=== PATIENT | male | born 1980 | race Native Hawaiian/Other Pacific Islander ===

== ENCOUNTER 2017-09-19 19:58 | Emergency (ER) | payer MEDICAID, OTHER ==
[2017-09-19 19:58] VITALS: BMI 25.4
[2017-09-19 20:24] VITALS: TEMP 98.5
[2017-09-19] MEDS ORDERED: LIDOCAINE IV STA ×2 (20:42→20:53)
[2017-09-19] MEDS ORDERED: SODIUM CHLORIDE 0.9% IV STA ×2 (20:42→20:53)
[2017-09-19] MEDS ORDERED: Sodium Chloride 0.9% 1,000 ML IV STA (20:42)
--- NOTE | 2017-09-19 20:42 | C.PDOC ---
History Of Present Illness 37 year old male presents to the ER with a complaint of suprapubic pain that occasionally radiates to the back that began yesterday. Patient was seen and treated in the ER last year for similar symptoms with no acute findings. He reports taking 2 tablets of advil [employer] which he states made him nauseous, but otherwise denies urinary frequency, vomiting, Hx of UTI, or Hx of kidney stones. Time Seen by Provider: 09/19/17 20:28 Chief Complaint (Nursing): Abdominal Pain History Per: Patient History/Exam Limitations: no limitations Onset/Duration Of Symptoms: Days Current Symptoms Are (Timing): Still Present Quality Of Discomfort: Unable To Describe Associated Symptoms: Nausea, Back Pain, Other (Suprapubic pain). denies: Fever , Chills, Vomiting, Urinary Symptoms Alleviating Factors: None Recent travel outside of the [place]: No Past Medical History Reviewed: Historical Data, Nursing Documentation, Vital Signs Vital Signs: Last Vital Signs Temp 98.5 F 09/19/17 20:18 Pulse 101 H 09/19/17 20:18 Resp 16 09/19/17 20:18 BP 148/92 H 09/19/17 20:18 Pulse Ox 98 09/19/17 20:52 Family History: States: Unknown Family Hx - Social History Hx Tobacco Use: No Hx Alcohol Use: No Hx Substance Use: No - Immunization History Hx Tetanus Toxoid Vaccination: No Hx Influenza Vaccination: Yes Hx Pneumococcal Vaccination: No Review Of Systems Constitutional: Negative for: Fever, Chills Gastrointestinal: Positive for: Nausea, Abdominal Pain. Negative for: Vomiting Genitourinary: Negative for: Frequency Musculoskeletal: Positive for: Back Pain Physical Exam - Physical Exam Appears: Non-toxic, No Acute Distress Skin: Normal Color, Warm, Dry Head: Atraumatic, Normacephalic Eye(s): bilateral: Normal Inspection Oral Mucosa: Moist Chest: Symmetrical, No Tenderness Cardiovascular: Rhythm Regular Respiratory: Normal Breath Sounds, No Rales, No Rhonchi, No Wheezing Gastrointestinal/Abdominal: Soft, No Tenderness, No Distention Back: No CVA Tenderness, Other (Normal ROM) Neurological/Psych: Oriented x3, Normal Speech Gait: Steady ED Course And Treatment - Laboratory Results Result Diagrams: 09/19/17 21:15 09/19/17 21:15 O2 Sat by Pulse Oximetry: 98 (room air) Pulse Ox Interpretation: Normal Progress - Re-Evaluation Re-evaluation Note: 09/19/17 21:35 EXAM UNCH, NO ACUTE ABD. VSS. PT ADVISED FU PMD, OTC PAIN RX. ADVISED POSSIBLE NEED FOR PROSTATE EVAL. ER RESULTS COPIES GIVEN - Data Reviewed Data Reviewed: Lab, Diagnostic imaging, Old records Medical Decision Making Medical Decision Making: Plan: * CT abd/pel * Blood work * Urinalysis * Flomax * IV fluids * Tylenol * Zofran * Lidocaine Disposition Counseled Patient/Family Regarding: Studies Performed, Diagnosis, Need For Followup - Disposition Referrals: YOUR,PMD [Other] Disposition: HOME/ ROUTINE Disposition Time: 21:35 Condition: IMPROVED Instructions: Acute Abdomen (Belly Pain), Adult (DC) Forms: [employer] ([place]) - Clinical Impression Clinical Impression: Abdominal discomfort - Scribe Statement The provider has reviewed the documentation as recorded by the Scribe Jaydon Ward All medical record entries made by the Scribe were at my direction and personally dictated by me. I have reviewed the chart and agree that the record accurately reflects my personal performance of the history, physical exam, medical decision making, and the department course for this patient. I have also personally directed, reviewed, and agree with the discharge instructions and disposition.
[2017-09-19 20:51] LABS: URINE BACTERIA RARE (<OCC); URINE BILIRUBIN NEGATIVE (NEGATIVE); URINE BLOOD NEGATIVE (NEGATIVE); URINE CLARITY Clear (Clear); URINE COLOR Straw (YELLOW); URINE GLUCOSE (UA) NORMAL (Normal); URINE LEUKOCYTE ESTERASE NEG Leu/uL (Negative); URINE PROTEIN NEGATIVE (NEGATIVE); URINE UROBILINOGEN NORMAL mg/dL (0.2-1.0)
[2017-09-19] MEDS ORDERED: Sodium Chloride 0.9% 1,000 ML ONE (20:52)
--- NOTE | 2017-09-19 21:12 | CT ---
EXAM: CT Abdomen and Pelvis Without Intravenous Contrast CLINICAL HISTORY: 37 years old, male; Pain; Abdominal pain; Flank; Lower; Additional info: Abd pain TECHNIQUE: Axial computed tomography images of the abdomen and pelvis without intravenous contrast. All CT scans at this facility use one or more dose reduction techniques, viz.: automated exposure control; ma/kV adjustment per patient size (including targeted exams where dose is matched to indication; i.e. head); or iterative reconstruction technique. Coronal and sagittal reformatted images were created and reviewed. COMPARISON: No relevant prior studies available. FINDINGS: Limitations: Lack of intravenous contrast. Lower thorax: No acute findings. ABDOMEN: Liver: Few < 0.5 cm lesions. Gallbladder and bile ducts: No calcified stones. No ductal dilation. Pancreas: Unremarkable. No ductal dilation. Spleen: Mildly enlarged. Adrenals: No mass. Kidneys and ureters: Too small to characterize lesion within LEFT kidney. No renal calculi. No hydronephrosis. Stomach and bowel: No definite mural thickening. No obstruction. Appendix: Normal caliber. No inflammation. PELVIS: Bladder: Unremarkable. No stones. Reproductive: Unremarkable as visualized. ABDOMEN and PELVIS: Intraperitoneal space: No significant fluid collection. No free air. Bones/joints: Hemangioma within spine. No acute fracture. Soft tissues: Unremarkable. Vasculature: Minimal atherosclerotic disease of iliac arteries. No aneurysm. Lymph nodes: No pathologically enlarged lymph nodes. IMPRESSION: 1. No definite CT evidence of urolithiasis. 2. Liver lesions. For patients with low to average risk of malignancy, no further follow-up is necessary. For patients with high risk of malignancy (known malignancy that can metastasize or other risk factors), recommend follow-up abdominal CT or MR in 6 months. 3. Incidental/non-acute findings are described above.
[2017-09-19 21:18] LABS: BASO % 0.6 % (0.0-2.0); EOS # 0.1 K/uL (0.0-0.7); EOS % 1.9 % (0.0-4.0); HEMOGLOBIN 15.7 g/dL (12.0-18.0); LYMPH # 1.4 K/uL (1.0-4.3); LYMPH % 21.1 % (20.0-40.0); MEAN CELL VOLUME 92.7 fL (80.0-94.0); MEAN CORPUSCULAR HGB CONC 34.6 g/dL (33.0-37.0); MEAN PLATELET VOLUME 8.6 fL (7.2-11.7); MONO # 0.4 K/uL (0.0-0.8); MONO % 5.9 % (0.0-10.0); NEUT # 4.8 K/uL (1.8-7.0); NEUT % 70.5 % (50.0-75.0); NRBC % 0.2 % (0.0-2.0); RBC 4.91 Mil/uL (4.40-5.90); RED CELL DISTRIBUTION WIDTH 12.2 % (11.5-14.5); WHITE BLOOD COUNT 6.8 K/uL (4.8-10.8)
[2017-09-19 21:29] LABS: BLOOD UREA NITROGEN 10 mg/dL (9-20); CALCIUM 8.7 mg/dl (8.6-10.4); GFR AFRICAN-AMERICAN > 60; GFR NON-AFRICAN AMERICAN > 60
[2017-09-19 22:01] VITALS: BP 128/85; PULSE 89; RESP 18; O2SAT 97
== END 2017-09-19 22:15 | disposition home or self-care (01) ==
LOC: C.ER 19:58
DX: R10.30 Lower abdominal pain, unspecified (principal)
CPT/HCPCS: 74176; 80048; 81001; 85025; 87086; 96360; 99284; J2001; J7040